=== PATIENT | female | born 1970 | race Two or more races ===

== ENCOUNTER 2016-08-16 16:14 | Emergency (ER) | payer MEDICAID ==
[~2016-08-16] VITALS: Ht 157.5 cm; Wt 65.8 kg
[~2016-08-16 16:14] MED LIST: UNOBMED
[2016-08-16] MEDS ORDERED: ROBAXIN-750750 MG PO (17:57)
[2016-08-16] MEDS ORDERED: IBUPROFEN600 MG ORAL (17:57)
[2016-08-16 18:06] VITALS: BP 121/72
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
--- NOTE | 2016-08-17 13:37 | Diagnostic Imaging Report ---
Indication: PAIN Technique: 3 views of the cervical spine Comparison: none Findings: Bony alignment is normal. Vertebral body heights are preserved. Disc spaces are preserved. Impression: Negative
== END 2016-08-16 18:16 | disposition home or self-care (01) ==
LOC: EDBD 16:14 → EMR 16:45
DX: S16.1XXA Strain of muscle, fascia and tendon at neck level, initial encounter (principal); S39.012A Strain of muscle, fascia and tendon of lower back, initial encounter; V49.40XA Driver injured in collision with unspecified motor vehicles in traffic accident, initial encounter; Y92.414 Local residential or business street as the place of occurrence of the external cause; E11.9 Type 2 diabetes mellitus without complications
CPT/HCPCS: 72020; 72040; 99284